=== PATIENT | male | born 1950 ===

== ENCOUNTER 2025-02-09 14:39 | Outpatient (REF) | payer MEDICARE, SELFPAY | END 2025-02-09 14:40 | disposition home or self-care (01) | LOC: HO.LNP 14:39 | PROVIDERS: Visit Provider Physician Assistant | DX: M17.0 Bilateral primary osteoarthritis of knee (principal); M25.461 Effusion, right knee | CPT/HCPCS: 84560; 87070; 87073; 87205; 89060 ==

== ENCOUNTER 2025-02-09 14:39 | Outpatient (AMB) | payer MEDICARE, MEDICAID, SELFPAY ==
--- NOTE | 2025-02-09 14:42 | A.PHYSOV ---
Vital Signs 02/09/25 14:43 Height 5 ft 11 in Weight 195 lb BMI 27.2 Intake Visit Reasons: Draining of right knee Intake Note: Patient is a 74 year old male in office today for draining of right knee. Patient is also questioning Left knee drainage and injections today. Allergies No Known Allergies Allergy (Verified 02/09/25 14:46) [facility] Surgical History (Updated 02/09/25 @ 14:48 by Simin Bowen MA) Aortic aneurysm CABG (coronary artery bypass graft) planned History of tonsillectomy (Unknown) Social History Household Members: Spouse Alcohol intake: current Alcohol intake frequency: holidays/special occasions only Patient Tobacco Use Status: Former Tobacco user Substance Use Type: Marijuana Current occupational status: retired Physical Exam Vital Signs: BMI result Body Mass Index 27.2 Office Procedures AMB Knee Injection AMB Knee Injection Procedure Details: Right Knee aspiration/corticosteroid injection: The patient was educated about the risks, complications and benefits of aspiration including but not limited to increase in glucose, infection, nerve damage, bleeding, fat atrophy, pigmentation augmentation and pain. Patient's questions were answered and they are eager to proceed. Verbal consent was obtained. The proximal/lateral aspect of the knee was cleansed with Betadine, ethyl chloride was then used to desensitize the skin. The skin was anesthetized with a 25-gauge needle inserted into the superior/lateral aspect of the knee with 0.5 mL of 1% lidocaine. An 18-gauge needle was then inserted in the same position, I aspirated 50 mL of serous fluid. I then injected 40 ml of Kenalog and 3 mL 2% lidocaine into the knee joint. The knee was cleansed with an alcohol prep and a Band-Aid was applied. The patient tolerated the procedure well without immediate complication. Left Knee injection: The risks, benefits and complications of the left knee injection were discussed with the patient including but not limited to increased serum glucose, infection, nerve pain, fat atrophy, pigment augmentation, bleeding and pain. All questions were answered to the patient's satisfaction. Verbal consent was obtained. The patient was eager to proceed. Using aseptic technique with Betadine, ethyl chloride was then used to desensitize the skin. Using a 22-gauge needle 40 mg of Kenalog and 3 mL 2% lidocaine were injected into the knee joint. A Band-Aid was applied. Patient tolerated the procedure well without immediate complication. Postinjection instructions were given. Knee Injection - : Bilateral All charges added?: Procedure code (CPT) selection complete Office Meds Kenalog 40 mg/mL suspension for injection Performing Provider: MAXINE Hernandez [facility] Administered by: MAXINE Hernandez on 02/09/25 16:13 Dose Route Admin Location Dispensed Lot Number Expiration Date [facility] [employer] 40 mg intra-articular 1 mL [id number] [employer] Total Dispensed Waste 1 mL 0 % lidocaine (PF) 20 mg/mL (2 %) injection solution Performing Provider: MAXINE Hernandez [facility] Administered by: MAXINE Hernandez on 02/09/25 16:13 Dose Route Admin Location Dispensed Lot Number Expiration Date [facility] [employer] 60 mg intra-articular 50 mL [id number] Total Dispensed Waste 50 mL 0 % Assessment & Plan Assessment & Plan (1) Effusion, right knee: Code(s): M25.461 - Effusion, right knee Category: Medical (2) Bilateral primary osteoarthritis of knee: Code(s): M17.0 - Bilateral primary osteoarthritis of knee Category: Medical Plan Mr. Varma is a 74-year-old male seen in evaluation today for bilateral knee osteoarthritis with right knee effusion. He was educated about the course of his condition and treatment options. Today consented to left knee corticosteroid injection as well as right knee aspiration with corticosteroid injection. He was given post-injection instructions, recommend: Moist heat compresses for 15 minutes to 5 times daily. Continue low-impact activities such as walking, biking and swimming. We will send the synovial fluid for Gram stain, culture, sensitivity and crystals. Follow-up in our office as needed. Thank you for allowing me to participate in the care of your patient. Orders: Orders Uric Acid Synovial Fluid Today M25.461 - Effusion, right knee Routine Culture w Gram Stain Today M25.461 - Effusion, right knee Synov Fld Cult + Crystals Today M25.461 - Effusion, right knee AMB Knee Injection Today M17.0 - Bilateral primary osteoarthritis of knee, M25.461 - Effusion, right knee Coding Level of Care Code Procedure Only Diagnoses Effusion, right knee M25.461 Bilateral primary osteoarthritis of knee M17.0 CPT Codes AMB Knee Injection - Hip/Bursa Injection - 71319: Bilateral ([id number])
[2025-02-09 14:43] VITALS: BMI 27.2
--- OUTSIDE RECORDS SUMMARY | 2025-02-09 19:31 | XMS_ITS | Clinical Summary ---
Author Organization [address] [facility] Address [address] [place] [address] Phone Care Team Providers Care Telegraphic Service Dispatcher Name Role Phone Unavailable Primary Care Provider Unavailabl e Allergies Active Allergy Reactions Criticality Noted Date Comments Rosuvastatin 08/17/2022 Joint pain Medications hydrOXYzine HCL (ATARAX) 25 mg tablet Take 1 tablet (25 mg total) by mouth at bedtime. 90 tablet 3 5 Active aspirin 81 mg EC tablet Take 1 tablet (81 mg total) by mouth 1 (one) time each day. Take 81 mg by mouth daily. 90 tablet 3 5 Active atorvastatin (LIPITOR) 40 mg tablet Take 1 tablet (40 mg total) by mouth 1 (one) time each day. TAKE 1 TABLET BY MOUTH DAILY 90 tablet 3 5 Active cetirizine (ZyrTEC) 10 mg tablet Take 1 tablet (10 mg total) by mouth 1 (one) time each day. Take 1 Tablet by mouth daily. 90 tablet 3 5 Active cyanocobalamin (VITAMIN B-12) 1,000 mcg tablet Take 1 tablet (1,000 mcg total) by mouth 1 (one) time each day. 90 tablet 3 5 Active ezetimibe (ZETIA) 10 mg tablet Take 1 tablet (10 mg total) by mouth 1 (one) time each day. Take 1 Tablet by mouth daily. 90 tablet 3 5 Active glucosamine-cho ndroitin 250-200 mg tablet Take 1 Tab ER by mouth 1 (one) time each day. Take by mouth daily. 90 each 3 5 Active multivitamin with minerals tablet Take 1 tablet by mouth 1 (one) time each day. Take by mouth. 90 tablet 3 5 Active polyethylene glycol (MIRALAX) 17 gram packet Take 17 g by mouth 1 (one) time each day. Take by mouth as needed. 1 each 3 5 Active vitamin E 670 mg (1,000 unit) capsule Take 1 capsule (1,000 Units total) by mouth 1 (one) time each day. Take by mouth daily. 90 capsule 3 5 Active meloxicam (MOBIC) 15 mg tablet Take 1 tablet (15 mg total) by mouth 1 (one) time each day. 90 tablet 1 5 Active metoprolol tartrate (LOPRESSOR) 25 mg tablet Take 1 tablet (25 mg total) by mouth 2 (two) times a day. 180 tablet 3 5 Active ammonium lactate (AmLactin) 12 % lotion Apply topically if needed for dry skin. 400 g 5 01/22/20 Discontinu ed(Stop Taking at Discharge) ketoconazole (NIZORAL) 2 % cream Apply topically 1 (one) time each day. 30 g 2 5 01/22/20 Discontinu ed(Therapy completed) ammonium lactate (AmLactin) 12 % lotion Apply topically if needed for dry skin. 400 g 5 01/22/20 Discontinu ed(Therapy completed) Active Problems Problem Noted Date Diagnosed Date Hypertension 02/20/2023 Overview (02/12/2024): Last Assessment & Plan: 140/78, he gets well-controlled readings at home. This is likely in the setting of this. Continue regimen. Assessment & Plan (12/23/2024 12:44 PM EDT): Diabetes mellitus type 2, co ntrolled, without complications ([facility] V24, [facility] V28) 02/16/2023 Ascending aorta dilatation ([facility] V24) 023 Overview (02/12/2024): Ct chest (08/09/22): Ascending aorta is ectatic measuring 4 cm Last Assessment & Plan: It was noted that the ascending aorta was 4.0 cm.He did have a recent CT of his chest if pulmonary is following him for the abnormal pulmonary findings. His ascending aorta was 4.0 cm I reviewed with him. This appears to be similar in size to the ascending aorta on the stress echocardiogram. This should be reevaluated and we will schedule for an echocardiogram in a year. CAD (coronary artery disease) 09/05/2021 Overview (02/12/2024): Last Assessment & Plan: He has coronary artery disease with CABG x4 in 2005. He is stable without any ischemic symptoms. Blood pressures are well-controlled at home. Lipids are at target. He will continue aspirin, metoprolol, high intensity statin therapy and Zetia. Continue daily low impact exercise and low-salt diet. He understands if he has any chest pain or chest discomfort lasting 15 minutes or longer to seek urgent medical attention. Assessment & Plan (12/23/2024 12:44 PM EDT): Orders: ECG 12 lead Chronic venous insufficiency 05/10/2018 Hyperuricemia 09/25/2017 Primary insomnia 08/02/2016 Abdominal aortic aneurysm (A AA) without rupture ([facility] V24) 05/10/2016 Overview (02/12/2024): S/p endovascular repair 05/2016--Dr Ayon Last Assessment & Plan: Followed by Dr. Horner. Overweight (BMI 25.0-29.9) 12/08/2011 Hyperlipidemia 11/17/2011 Overview (02/12/2024): Last Assessment & Plan: Last lipid panel from September 2022. Total cholesterol 155, HDL 55, LDL 69. Continue statin therapy and Zetia. Her LDL less than 70 given coronary disease. Resolved Problems Problem Noted Date Diagnosed Date Resolved Date Cavitary lesion of lung 08/09/2022 05/0 07/2024 S/P CABG x 4 11/17/2011 07/21/2024 Overview (02/12/2024): 2006 Encounters Date Type Department Care Team Description 01/22/2025 Results Follow-Up Internal Medicine - [facility] [address] [place] [phone] Sandra Cox NP 01/21/2025 11:51 AM EST - 01/21/2025 11:59 PM EST Hospital Encounter Xray - [facility] [address] [facility] [place] [phone] Acute pain of both knees Discharge Disposition: Home or Self Care 01/21/2025 11:15 AM EST [facility] [address] [place], [place] [address] [place] [phone] Sandra Cox NP Acute pain of both knees (Primary Dx); Diabetes mellitus type 2, controlled, without complications ([facility] V24, [facility] V28); Mixed hyperlipidemia; Primary hypertension; Chronic venous insufficiency; Primary insomnia; Other constipation; Hyperuricemia; Chronic coronary microvascular dysfunction; Ascending aorta dilatation ([facility] V24); Abdominal aortic aneurysm (AAA) without rupture, unspecified part ([facility] V24) 01/01/2025 10:15 AM EDT Office Visit Orthopedic Surgery - [place] [address] [facility] [address] [place] [phone] Ezekiel Baez DPM Dermatophytosis of nail (Primary Dx); Type 2 diabetes mellitus without complication, with long-term current use of insulin ([facility] V24, [facility] V28); Pain in toe of right foot; Pain in toe of left foot; Diabetic mononeuropathy simplex ([facility] V24, [facility] V28); Type II diabetes mellitus with peripheral circulatory disorder ([facility] V24, [facility] V28) 12/23/2024 10:50 AM EDT Office Visit [facility] [address] [facility] [address] [place] [phone] Ezekiel Fletcher MD Coronary artery disease due to calcified coronary lesion (Primary Dx); Primary hypertension from Last 3 Months Immunizations Immunization Administration Dates Next Due Influenza trivalent, 0.5mL ( Fluad) 65yo and older 02/26/2023,12/15/2020,01/13/2019 Influenza, Unspecified 12/28/2021 Check SARS-CoV-2 COVID-19, mRNA, LNP-S, preservative free 12/28/2021,12/15/2020,06/12/2020,05/22 Pneumococcal conjugate 13 va lent (Prevnar 13, PCV13) 2mo and older 04/19/2016 Pneumococcal polysaccharide 23 valent (Pneumovax 23) 2yo and older 09/25/2017 Td Tetanus diptheria (Tdvax) 7yo and older 09/28/2022 Tdap Tetanus diptheria acell ular pertussis (Boostrix; Adacel) 7yo and older 03/08/2012 Zoster Live 09/28/2015 Surgical History Surgery Date Site/Laterality Comments CORONARY ARTERY BYPASS GRAFT 06/22/05 PROCEDURE: HISTORICAL CABG; COMMENT: x4 vessels MULTIPLE TOOTH EXTRACTIONS PROCEDURE: HISTORICAL DENTAL EXTRACTION COLONOSCOPY 2007 PROCEDURE: HISTORICAL COLONOSCOPY; COMMENT: [place]; small polyps biopsied. 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 DX:HDL deficienc y S/P CABG x 4 11/17/2011 DX:S/P CABG x 4; COMMENT: 2005 Obesity 12/08/2011 DX:Obesity H/O colonoscopy 2002 DX:H/O colonosco py; COMMENT: In [place] Ascending aorta dilatation (CMS/HCC V24) 08/10/19 DX:Ascending aorta dilatation (HCC) Type 2 diabetes mellitus (CM S/HCC V24, CMS/HCC V28) 02/16/2023 DX:Type 2 diabetes mellitus (HCC) CAD (coronary artery disease) 09/05/2021 Diabetes mellitus type 2, co ntrolled, without complications (CMS/[facility]CC V24, CMS/[facility] V28) 02/16/2023 Hyperlipidemia 11/17/2011 Family History Medical History Relation Name Comments Coronary artery disease Father Heart attack Father Heart attack Maternal Grandfather Stroke Mother Relation Name Status Comments Father Maternal Grandfather Mother Social History Tobacco Use Types Packs/Day Years Used Date Smoking Tobacco: Former Cigarettes 1.5 31.5 1 05/13/1969 - 09/16/2001 Smokeless Tobacco: Never Tobacco Cessation:Counseling Given: Not Answered Alcohol Use Standard Drinks/Week Comments Yes 0 (1 standard drink = 0.6 oz pur e alcohol) wine nightly Sex and Gender Information Value Date Recorded Sex Assigned at Not on file Legal Sex Male 11:51 PM EST Gender Identity Male 03/20/2024 5:36 PM EST Sexual Orientation Lesbian or Pickard 03/20/2024 5: 36 PM EST Obstetrics History Last Filed Vital Signs Vital Sign Reading Time Taken Comments Blood Pressure 126/66 01/21/2025 11:12 AM EST auto cuff Pulse 56 01/21/2025 11:12 AM EST auto cuff Temperature 35.8 C (96.5 F) 01/21/2025 11:12 AM EST Respiratory Rate - - Oxygen Saturation 95% 12/23/2024 10: 28 AM EDT Inhaled Oxygen Concentration - - Weight 91.9 kg (202 lb 9.6 oz) 01/22/20 11:12 AM EST Height 180.3 cm (5' 11 ) 12/23/2024 10: 28 AM EDT Body Mass Index 28.26 12/23/2024 10:28 AM EDT Plan of Treatment Upcoming Encounters Date Type Department Care Team (Late st Contact Info) Description 04/15/2025 9:00 AM EST Office Visit Orthopedic Surgery - [place] [address] [phone] Ezekiel Baez DPM [address] [phone] 07/21/2025 11:15 AM EDT Office Visit Internal Medicine - [address] [phone] Sandra Cox, TESSA [address] [place] [phone] Health Maintenance Due Date Last Done Comments Diabetes: Annual Foot Exam 1961 Diabetes: Annual Retina Eye Exam 1961 RSV Immunization Adult Patients (1 - Risk 50-74 years 1-dose series) 2001 Zoster Vaccines (2 of 3) 11/23/2015 09/28/2015 Falls Risk Assessment 02/25/2022 Social Influencers of Health Screening 02/25/2022 Diabetes: Annual Urine Albumin-Creatinine Ratio (uACR) 02/27/2024 02/26/2023 Medicare Annual Wellness Visit 11/05/2024 11/06/2023 COVID-19 Vaccine ( season) 2024 12/31/2023, 06/15/2023, 12/28/2021, Additional history exists Influenza Vaccine (#1) 2024 , 02/26/2023, 12/28/2021, Additional history exists Diabetes: Blood Sugar Control Test (HGBA1C) 01/21/2025 07/21/2024, 10/29/2023, 10/29/2023 Diabetes: Annual GFR (Glomerular Filtration Rate) 07/21/2025 07/21/2024, 10/29/2023, 10/29/2023 Hypertension/CHF/CAD Annual BMP Blood Test 07/21/2025 07/21/2024, 10/29/2023, 10/29/2023 Colorectal Cancer Screening: Colonoscopy 07/20/2026 07/20/2016 Cholesterol Screening (Lipid Panel) 10/28/2028 10/29/2023, 10/29/2023 DTaP,Tdap,and Td Vaccines (3 - Td or Tdap) 09/28/2032 09/28/2022, 03/08/2012 Hepatitis C Screening Completed 07/08/2012 Pneumococcal Vaccine: 50+ Years Completed 09/25/2017, 04/19/2016 Depression Screening Completed 01/21/2025, 11/06/19 24 HIB Vaccines Aged Out No longer eligi ble based on patient's age to complete this topic HPV Vaccines Aged Out No longer eligi ble based on patient's age to complete this topic Hepatitis A Vaccines Aged Out No long er eligible based on patient's age to complete this topic Hepatitis B Vaccines Aged Out No long er eligible based on patient's age to complete this topic IPV Vaccines Aged Out No longer eligi ble based on patient's age to complete this topic MMR Vaccines Aged Out No longer eligi ble based on patient's age to complete this topic Meningococcal ACWY Vaccine Aged Out N o longer eligible based on patient's age to complete this topic Meningococcal B Vaccine Aged Out No l onger eligible based on patient's age to complete this topic RSV Immunization Patients Under 20 months Aged Out No longer eligible based on patient's age to complete this topic Varicella Vaccines Aged Out No longer eligible based on patient's age to complete this topic Procedures Procedure Name Priority Date/Time Associated Diagnosis Comments XR KNEE 4+ VIEWS BILAT Routine 5 12:05 PM EST Acute pain of both knees ECG 12-LEAD Routine 12/23/2024 10:33 AM EDT Coronary artery disease due to calcified coronary lesion TESTOSTERONE, TOTAL Routine 11/10/2024 9 :42 AM EDT Malignant neoplasm of prostate ([facility] V24, [facility] V28) PROSTATE SPECIFIC ANTIGEN DIAGNOSTIC Routine 11/10/2024 9:42 AM EDT Malignant neoplasm of prostate ([facility] V24, [facility] V28) COMPREHENSIVE METABOLIC PANEL Routine 07/21/2024 11:51 AM EDT Screening for metabolic disorder HEMOGLOBIN A1C Routine 07/21/2024 11:51 AM EDT Controlled type 2 diabetes mellitus without complication, without long-term current use of insulin ([facility] V24, [facility] V28) HM DEPRESSION SCREENING Routine 11/06/2023 LIPID PANEL Routine 10/29/2023 URINE ALBUMIN CREATININE RATIO Routine 02/26/2023 COLONOSCOPY Routine 07/20/2016 HEPATITIS C SCREENING Routine 07/08/2012 from Last 3 Months or Most Recently Relevant to Health Maintenance Results * XR Knee 4+ Views bilat (01/21/2025 12:05 PM EST) Anatomical Region Laterality Modality Lower Extremities, Knee Bilateral Radiogra phic Imaging 01/21/2025 5:06 PM EST Impressions 01/21/2025 5:07 PM EST Moderately advanced osteoarthritis of both knees. Small bilateral knee joint effusions. -------- FINAL REPORT -------- Dictated By: Gwendolyn Ryan Dictated Date: 01/21/2025 17:06 ET Assigned Physician: Gwendolyn Ryan Reviewed and Electronically Signed By: Gwendolyn Ryan Signed Date: 01/21/2025 17:07 ET Workstation ID: [id number] Transcribed By: Self Edit Transcribed Date: 01/21/2025 17:06 ET Narrative 01/21/2025 5:07 PM EST BILATERAL KNEES VIEWS: 4V each. HISTORY: Pain. FINDINGS: There is severe narrowing of the medial femoral tibial compartment bilaterally. There is spurring about all compartments of each knee. There is atherosclerosis bilaterally. No fracture or malalignment is seen. Soft tissues are normal. The patellae are normally positioned on the Merchant view. There are small bilateral knee joint effusions. Procedure Note Gwendolyn Ryan MD - 01/21/2025 BILATERAL KNEES VIEWS: 4V each. HISTORY: Pain. FINDINGS: There is severe narrowing of the medial femoral tibial compartmentbilaterally. There is spurring about all compartments of each knee. There is atherosclerosis bilaterally. No fracture or malalignment is seen. Soft tissues are normal. The patellaeare normally positioned on the Merchant view. There are small bilateral knee joint effusions. IMPRESSION: Moderately advanced osteoarthritis of both knees. Small bilateral kneejoint effusions. -------- FINAL REPORT -------- Dictated By: Gwendolyn Ryan Dictated Date: 01/21/2025 17:06 ET Assigned Physician: Gwendolyn Ryan Reviewed and Electronically Signed By: Gwendolyn Ryan Signed Date: 01/21/2025 17:07 ET Workstation ID: [id number] Transcribed By: Self Edit Transcribed Date: 01/21/2025 17:06 ET Sandra Rodriguez [facility] IMG XR PROCEDURES Final Resu lt * ECG 12 lead (12/23/2024 10:33 AM EDT) Ventricular Rate ECG 62 BPM GEMUSE Atrial Rate 62 BPM GEMUSE P-R Interval 200 ms GEMUSE QRS Duration 106 ms GEMUSE Q-T Interval 410 ms GEMUSE QTc 416 ms GEMUSE P Wave [place] 62 degrees GEMUSE R [place] 30 degrees GEMUSE T [place] -16 degrees GEMUSE ECG Interpretation Sinus rhythm with marked sinus arrhythmia Nonspecific ST abnormality Abnormal ECG No previous ECGs available Confirmed by MD Chance, Ezekile ([id number]) on 12/23/2024 12:45:37 PM GEMUSE 12/23/2024 10:3 3 AM EDT 12/23/2024 12:45 PM EDT Ezekiel Fletcher MD ECG ORDERABLES Final Res ult Performing Organization Address [facility] Co de Phone Number GEMUSE * Prostate specific antigen diagnostic (11/10/2024 9:42 AM EDT) Pathologist [facility] PSA 0.84 0.00 - 4.00 ng/mL LAB CHEMISTRY METHOD 11/10/2024 12:47 PM EDT [facility] Blood Venous blood specimen / Unknown Venipuncture / Unknown 11/10/2024 9:42 AM EDT 11/10/2024 9:43 AM EDT Narrative [facility] - 11/10/2024 12:47 PM EDT The Siemens Advia Centaur Chemiluminescent Immunoassay is used. Results obtained with different assay methods or kits cannot be used interchangeably. Results cannot be interpreted as absolute evidence of the presence or absence of malignant disease. Lawrence Lopez MD LAB BLOOD ORDERABLES Final Result Performing Organization Address City/[facility]/ZIP Co de Phone Number [facility] [address] [place] [address], [place] [phone] * Testosterone, total (11/10/2024 9:42 AM EDT) Testosterone 636 229 - 902 ng/dL LAB CHEMISTRY METHOD 11/10/2024 2:23 PM EDT [facility] Blood Venous blood specimen / Unknown Venipuncture / Unknown 11/10/2024 9:42 AM EDT 11/10/2024 9:43 AM EDT Lawrence Lopez MD LAB BLOOD ORDERABLES Final Result Performing Organization Address [facility]/ZIP Co de Phone Number [facility] [address] [place] [address], [place] [phone] * Hemoglobin A1c (07/21/2024 11:51 AM EDT) [facility] Hemoglobin A1C 6.3 <6.5 % LAB CHEMISTRY METHOD 07/21/2024 9:11 PM EDT [facility] Mean Bld Glu Estim. 134 mg/dL LAB CHEMISTRY METHOD 07/21/2024 9:11 PM EDT [facility] Blood Venous blood specimen / Unknown Venipuncture / Unknown 07/21/2024 11:51 AM EDT 07/21/2024 11:51 AM EDT Sandra Rodriguez NP LAB BLOOD ORDERABLES Final R esult [facility] [address] [place] [address], [place] [phone] * Comprehensive metabolic panel (07/21/2024 11:51 AM EDT) [facility] Sodium 141 133 - 145 mmol/L LAB CHEMISTRY METHOD 07/21/2024 3:05 PM EDT [facility] Potassium 4.3 3.5 - 5.5 mmol/L LAB CHEMISTRY METHOD 07/21/2024 3:05 PM EDT [facility] Chloride 108 96 - 110 mmol/L LAB CHEMISTRY METHOD 07/21/2024 3:05 PM [facility] CO2 27 21 - 32 mmol/L LAB CHEMISTRY METHOD 07/21/2024 3:05 PM [facility] Anion Gap 6 3 - 11 LAB CHEMISTRY METHOD 07/21/2024 3:05 PM [facility] Glucose 85 70 - 100 mg/dL LAB CHEMISTRY METHOD 07/21/2024 3:05 PM [facility] BUN 16 5 - 25 mg/dL LAB CHEMISTRY METHOD 07/21/2024 3:05 PM [facility] Creatinine 0.80 0.70 - 1.30 mg/dL LAB CHEMISTRY METHOD 07/21/2024 3:05 PM [facility] eGFR 93 >=60 mL/min/1. 73m2 LAB CHEMISTRY METHOD 07/21/2024 3:05 PM [facility] Comment:Calculation based on the Chronic Kidney Disease Epidemiology Collaboration (CKD-EPI) equation refit without adjustment for race. BUN/Creatinine Ratio 20.0 LAB CHEMISTRY METHOD 07/21/2024 3:05 PM [facility] Calcium 9.3 8.5 - 10.5 mg/dL LAB CHEMISTRY METHOD 07/21/2024 3:05 [facility] AST (SGOT) 30 10 - 42 unit/L LAB CHEMISTRY METHOD 07/21/2024 3:05 PM [facility] ALT (SGPT) 37 10 - 60 unit/L LAB CHEMISTRY METHOD 07/21/2024 3:05 PM [facility] Alkaline Phosphatase 83 42 - 121 unit/L LAB CHEMISTRY METHOD 07/21/2024 3:05 PM [facility] Total Protein 6.3 6.0 - 8.0 g/dL LAB CHEMISTRY METHOD 07/21/2024 3:05 PM [facility] Albumin 3.5 3.2 - 5.0 g/dL LAB CHEMISTRY METHOD 07/21/2024 3:05 PM EDT [facility] Total Bilirubin 1.0 0.0 - 1.4 mg/dL LAB CHEMISTRY METHOD 07/21/2024 3:05 PM EDT [facility] Blood Venous blood specimen / Unknown Venipuncture / Unknown 07/21/2024 11:51 AM EDT 07/21/2024 11:51 AM EDT Sandra Rodriguez [facility] LAB BLOOD ORDERABLES Final R esult [facility] [address] [place] [address], * Depression Screening (11/06/2023) Pathologist [facility] Depression Screening Abstracted Result [facility] Provider HEALTH MAINTENANCE Final Result * Lipid panel (10/29/2023) [facility] LDL/HDL Ratio 3 0 - 4 Triglycerides 99 0 - 150 mg/dL Cholesterol 134 0 - 200 mg/dL HDL 46 >=40 mg/dL LDL Cholesterol 69 0 - 100 mg/dL Blood Venous blood specimen / Unknown Result [facility] Provider LAB BLOOD ORDERABLES Anny l Result * Urine Albumin Creatinine Ratio (02/26/2023) [facility] Urine Albumin Creatinine Ratio Abstracted [facility] Provider HEALTH MAINTENANCE Final Result * Colonoscopy (07/20/2016) [facility] Colonoscopy No interpreta tion,abstr acted Anatomical Region Laterality Modality Other [facility] Provider HEALTH MAINTENANCE Final Result * Hepatitis C Screening (07/08/2012) [facility] Hepatitis C Screening Abstracted [facility] Provider HEALTH MAINTENANCE Final Result from Last 3 Months or Most Recently Relevant to Health Maintenance Insurance MEDICAID - [place] [employer] MEDICARE Advance Directives Documents on File Type Date Recorded Patient Housing Project Manager Expl anation Health Care Decision (hx) 06/13/2016 AD YANES DIRECTIVE Health Care Decision (hx) 06/13/2016 AD YANES DIRECTIVE Health Care Decision (hx) 06/13/2016 AD YANES DIRECTIVE Health Care Decision (hx) 06/13/2016 AD YANES DIRECTIVE Health Care Decision (hx) 06/13/2016 AD YANES DIRECTIVE Health Care Decision (hx) 06/13/2016 AD YANES DIRECTIVE
--- OUTSIDE RECORDS SUMMARY | 2025-02-09 19:31 | XMS_ITS | Encounter Summary ---
Author Organization [facility] Address [address] [place] [address] Care Team Providers Care Technical Sme Name Role Phone Unavailable Primary Care Provider Unavailabl e Encounter Details Date Type Department Care Team (Late Contact Info) Description 01/22/2025 Results Follow-Up Internal Medicine - [facility] [address] [place] [phone] Sandra Cox, TESSA [address] [place] [address] Social History Tobacco Use Types Packs/Day Years Used Date Smoking Tobacco: Former Cigarettes 1.5 31.5 1 05/13/1969 - 09/16/2001 Smokeless Tobacco: Never Alcohol Use Standard Drinks/Week Comments Yes 0 (1 standard drink = 0.6 oz pur e alcohol) wine nightly Sex and Gender Information Value Date Recorded Sex Assigned at Not on file Legal Sex Male 11:51 PM EST Gender Identity Male 03/20/2024 5:36 PM EST Sexual Orientation Lesbian or Pickard 03/20/2024 5: 36 PM EST documented as of this encounter Plan of Treatment Upcoming Encounters Date Type Department Care Team (Late st Contact Info) Description 04/15/2025 9:00 AM EST Office Visit Orthopedic Surgery - [place] [address] [phone] Ezekiel Baez, DPM [address] [phone] 07/21/2025 11:15 AM EDT Office Visit Internal Medicine - [facility] [address] [place] [phone] Sandra Cox, TESSA [address] [place] [address] documented as of this encounter Visit Diagnoses Not on filedocumented in this encounter Additional Health Concerns Assessment Noted Time PHQ-9 Depression Total Score: 0 01/22/20 25 11:12 AM EST documented as of this encounter
== END 2025-02-09 15:24 | disposition home or self-care (01) ==
LOC: HO.HPHYS 14:39
PROVIDERS: Visit Provider Physician Assistant
DX: M17.0 Bilateral primary osteoarthritis of knee (principal); M25.461 Effusion, right knee
CPT/HCPCS: 20610